=== PATIENT | female | born 2000 | race Caucasian/White ===

== ENCOUNTER 2022-02-07 09:38 | Emergency (ER) | payer MEDICAID | END 2022-02-07 11:05 | disposition home or self-care (01) | LOC: JP.ED 09:38 | DX: R31.29 Other microscopic hematuria (principal); R10.9 Unspecified abdominal pain; F41.9 Anxiety disorder, unspecified; F32.A Depression, unspecified; K21.9 Gastro-esophageal reflux disease without esophagitis; Z79.899 Other long term (current) drug therapy | CPT/HCPCS: 81001; 81025; 87086; 99284 ==